=== PATIENT | female | born 1940 | race Caucasian/White ===

== ENCOUNTER 2017-12-29 15:08 | Inpatient (IN) | payer MEDICARE, OTHER ==
[2017-12-29 21:53] LABS: ADD MAN DIFF? NO
[2017-12-29 21:56] LABS: BASOPHILS % 0.4 % (0.0-2.0); EOSINOPHILS # 0.1 10^3/ul (0.0-0.5); EOSINOPHILS % 1.3 % (0.0-7.0); HEMATOCRIT 29.6 % (37.0-47.0); HEMOGLOBIN 9.5 g/dl (12.0-16.0); LYMPHOCYTES # 0.6 10^3/ul (0.8-2.9); LYMPHOCYTES % 11.7 % (15.0-51.0); MEAN CORPUSCULAR HEMOGLOBIN 29.4 pg (29.0-33.0); MEAN CORPUSCULAR HGB CONC 32.1 g/dl (32.0-37.0); MEAN CORPUSCULAR VOLUME 91.6 fl (82.0-101.0); MONOCYTE # 0.2 10^3/ul (0.3-0.9); MONOCYTES % 4.2 % (0.0-11.0); NEUTROPHIL # 4.5 10^3/ul (1.6-7.5); NEUTROPHILS % 81.5 % (39.0-77.0); PLATELET COUNT 315 10^3/UL (140-415); RED BLOOD COUNT 3.23 10^6/ul (4.20-5.40); RED CELL DISTRIBUTION WIDTH 15.8 % (11.5-14.5)
[2017-12-29 21:56] LABS: WHITE BLOOD COUNT 5.5 10^3/ul (4.8-10.8)
[2017-12-29 22:17] LABS: ALANINE AMINOTRANSFERASE 23 IU/L (13-69); ALBUMIN 2.8 g/dl (3.3-4.9); ALKALINE PHOSPHATASE 96 IU/L (42-121); ANION GAP 12 (8-16); ASPARTATE AMINO TRANSFERASE 25 IU/L (15-46); BLOOD UREA NITROGEN 25 mg/dl (7-20); CALCIUM 8.7 mg/dl (8.4-10.2); CARBON DIOXIDE 21 mmol/L (21-31); CHLORIDE 111 mmol/L (97-110); CREATININE 1.67 mg/dl (0.44-1.00); GLUCOSE 114 mg/dl (70-220); SODIUM 141 mmol/L (135-144); TOTAL PROTEIN 6.3 g/dl (6.1-8.1)
[2017-12-29 22:28] LABS: POTASSIUM 2.8 mmol/L (3.5-5.1)
[2017-12-29 22:29] LABS: B-TYPE NATRIURETIC PEPTIDE 1120 PG/ML (0-450); TROPONIN-I 0.015 ng/ml (0.00-0.12)
[2017-12-29] MEDS ORDERED: ONDANSETRON 4 MG INJ IV (23:00)
[2017-12-29] MEDS ORDERED: ACETAMINOPHEN 325 MG TAB PO (23:00)
[2017-12-29] MEDS: FUROSEMIDE 40 MG INJ IV (23:25)
[2017-12-29] MEDS: POTASSIUM CHLORIDE 100 ML IVPB (23:35)
[2017-12-29 23:52] LABS: MAGNESIUM 1.5 mg/dl (1.7-2.5)
[2017-12-30] MEDS: POTASSIUM CHLORIDE 100 ML IVPB (02:53)
[2017-12-30] MEDS ORDERED: PENDING SANTYL ORDER FOR WOUND CARE XX (03:00)
[2017-12-30] MEDS: MAGNESIUM SULFATE 2 GM/50 ML 50 ML IVPB (05:18)
[2017-12-30] MEDS: AMLODIPINE 10 MG TAB PO (08:29)
[2017-12-30] MEDS: ALLOPURINOL 100 MG TAB PO (08:29)
[2017-12-30 08:49] LABS: ADD MAN DIFF? NO
[2017-12-30 08:54] LABS: BASOPHILS % 0.2 % (0.0-2.0); EOSINOPHILS # 0.1 10^3/ul (0.0-0.5); EOSINOPHILS % 2.6 % (0.0-7.0); HEMATOCRIT 23.9 % (37.0-47.0); HEMOGLOBIN 7.9 g/dl (12.0-16.0); LYMPHOCYTES # 0.7 10^3/ul (0.8-2.9); LYMPHOCYTES % 16.7 % (15.0-51.0); MEAN CORPUSCULAR HEMOGLOBIN 29.8 pg (29.0-33.0); MEAN CORPUSCULAR HGB CONC 33.1 g/dl (32.0-37.0); MEAN CORPUSCULAR VOLUME 90.2 fl (82.0-101.0); MEAN PLATELET VOLUME 9.4 fl (7.4-10.4); MONOCYTE # 0.2 10^3/ul (0.3-0.9); MONOCYTES % 5.7 % (0.0-11.0); NEUTROPHIL # 3.1 10^3/ul (1.6-7.5); NEUTROPHILS % 73.6 % (39.0-77.0); PLATELET COUNT 279 10^3/UL (140-415); RED BLOOD COUNT 2.65 10^6/ul (4.20-5.40); RED CELL DISTRIBUTION WIDTH 15.9 % (11.5-14.5)
[2017-12-30 08:54] LABS: WHITE BLOOD COUNT 4.2 10^3/ul (4.8-10.8)
[2017-12-30 09:29] LABS: ANION GAP 10 (8-16); BLOOD UREA NITROGEN 26 mg/dl (7-20); CALCIUM 8.2 mg/dl (8.4-10.2); CARBON DIOXIDE 25 mmol/L (21-31); CHLORIDE 113 mmol/L (97-110); GLUCOSE 89 mg/dl (70-220); MAGNESIUM 1.9 mg/dl (1.7-2.5); PHOSPHORUS 3.2 mg/dl (2.5-4.9); POTASSIUM 3.1 mmol/L (3.5-5.1); SODIUM 145 mmol/L (135-144)
[2017-12-30 10:16] LABS: ADD UMIC YES; UR ASCORBIC ACID NEGATIVE (NEGATIVE); UR BILIRUBIN (Dip) NEGATIVE (NEGATIVE); UR BLOOD (Dip) 1+ mg/dL (NEGATIVE); UR CLARITY CLEAR (CLEAR); UR COLOR STRAW (YELLOW); UR GLUCOSE (Dip) NEGATIVE (NEGATIVE); UR KETONES (Dip) NEGATIVE (NEGATIVE); UR LEUKOCYTE ESTERASE (Dip) NEGATIVE Leu/ul (NEGATIVE); UR NITRITE (Dip) NEGATIVE (NEGATIVE); UR RBC 6 /HPF (0-5); UR SPECIFIC GRAVITY (Dip) 1.005 (1.003-1.030); UR TOTAL PROTEIN (Dip) 1+ mg/dl (NEGATIVE); UR UROBILINOGEN (Dip) NEGATIVE (NEGATIVE); UR WBC 1 /HPF (0-5)
[2017-12-30 11:13] LABS: CREATININE,URINE RANDOM 18.51 mg/dl (20-320)
[2017-12-30 11:13] LABS: SODIUM,URINE RANDOM 125 mmol/L (30-90)
[2017-12-30 12:54] LABS: CHOLESTEROL 140 mg/dl (100-200)
[2017-12-30 12:54] LABS: CHOL/HDL RATIO 4.6 RATIO; HDL CHOLESTEROL 30 mg/dl (33-92); LDL CHOLESTEROL,CALCULATED 85 mg/dl; TRIGLYCERIDES 127 mg/dl (0-149)
[2017-12-30 13:28] LABS: HEMOGLOBIN A1C 5.5 % (0-5.9)
[2017-12-30] MEDS: POTASSIUM CHLORIDE (SR) 20 MEQ TAB PO (13:55)
[2017-12-30] MEDS: FUROSEMIDE 20 MG INJ IV (17:22)
[2017-12-30 19:12] LABS: CREATININE,URINE RANDOM 69.01 mg/dl (20-320)
[2017-12-30 19:14] LABS: SODIUM,URINE RANDOM 61 mmol/L (30-90)
[2017-12-30 19:20] LABS: PROTEIN/CREAT RATIO 4.04 RATIO
[2017-12-30] MEDS: ALBUTEROL 0.083% (NEB) 2.5 MG/3 ML AMP HHN (20:00)
[2017-12-30] MEDS: LATANOPROST 0.005% 2.5 ML OPH BOTH EYES (21:29)
[2017-12-31] MEDS: ACETAMINOPHEN 325 MG TAB PO (06:14)
[2017-12-31] MEDS: FUROSEMIDE 20 MG INJ IV ×2 (06:14→17:19)
[2017-12-31] MEDS: ALBUTEROL 0.083% (NEB) 2.5 MG/3 ML AMP HHN ×4 (07:38→20:48)
[2017-12-31 07:48] LABS: ADD MAN DIFF? NO
[2017-12-31 07:54] LABS: WHITE BLOOD COUNT 4.9 10^3/ul (4.8-10.8)
[2017-12-31 07:54] LABS: BASOPHILS % 0.4 % (0.0-2.0); EOSINOPHILS # 0.2 10^3/ul (0.0-0.5); HEMATOCRIT 26.8 % (37.0-47.0); HEMOGLOBIN 8.6 g/dl (12.0-16.0); LYMPHOCYTES # 0.8 10^3/ul (0.8-2.9); LYMPHOCYTES % 16.8 % (15.0-51.0); MEAN CORPUSCULAR HEMOGLOBIN 29.3 pg (29.0-33.0); MEAN CORPUSCULAR HGB CONC 32.1 g/dl (32.0-37.0); MEAN CORPUSCULAR VOLUME 91.2 fl (82.0-101.0); MEAN PLATELET VOLUME 9.3 fl (7.4-10.4); MONOCYTE # 0.3 10^3/ul (0.3-0.9); MONOCYTES % 6.7 % (0.0-11.0); NEUTROPHIL # 3.5 10^3/ul (1.6-7.5); NEUTROPHILS % 71.7 % (39.0-77.0); PLATELET COUNT 297 10^3/UL (140-415); RED BLOOD COUNT 2.94 10^6/ul (4.20-5.40); RED CELL DISTRIBUTION WIDTH 15.8 % (11.5-14.5)
[2017-12-31 08:13] LABS: ANION GAP 11 (8-16); BLOOD UREA NITROGEN 25 mg/dl (7-20); CALCIUM 8.4 mg/dl (8.4-10.2); CARBON DIOXIDE 24 mmol/L (21-31); CHLORIDE 114 mmol/L (97-110); CREATININE 1.58 mg/dl (0.44-1.00); GLUCOSE 77 mg/dl (70-220); POTASSIUM 3.4 mmol/L (3.5-5.1); SODIUM 146 mmol/L (135-144)
[2017-12-31 08:14] LABS: MAGNESIUM 1.6 mg/dl (1.7-2.5)
[2017-12-31 08:14] LABS: PHOSPHORUS 3.3 mg/dl (2.5-4.9)
[2017-12-31 08:19] LABS: CREATINE KINASE 50 IU/L (23-200)
[2017-12-31] MEDS: AMLODIPINE 10 MG TAB PO (08:19)
[2017-12-31] MEDS: ALLOPURINOL 100 MG TAB PO (08:21)
[2017-12-31] MEDS: POTASSIUM CHLORIDE (SR) 20 MEQ TAB PO ×2 (11:10→15:52)
[2017-12-31] MEDS: MAGNESIUM SULFATE 2 GM/50 ML 50 ML IVPB (11:10)
[2017-12-31] MEDS: ASPIRIN (EC) 81 MG TAB PO (17:19)
[2017-12-31] MEDS: LATANOPROST 0.005% 2.5 ML OPH BOTH EYES (20:40)
[2017-12-31] MEDS: HEPARIN 5,000 UNIT/0.5 ML VIAL SC (20:49)
[2017-12-31] MEDS ORDERED: FLUTICASONE 0.05% 16 GM NAS SPRAY NASAL (21:00)
[2017-12-31] MEDS: TIMOLOL 0.5% 5 ML OPH BOTH EYES (22:00)
[2018-01-01] MEDS: FUROSEMIDE 20 MG INJ IV ×2 (05:54→18:20)
[2018-01-01 06:32] LABS: ADD MAN DIFF? NO
[2018-01-01 07:16] LABS: ANION GAP 15 (8-16); BLOOD UREA NITROGEN 28 mg/dl (7-20); CALCIUM 8.6 mg/dl (8.4-10.2); CARBON DIOXIDE 24 mmol/L (21-31); CHLORIDE 113 mmol/L (97-110); CREATININE 1.67 mg/dl (0.44-1.00); GLUCOSE 81 mg/dl (70-220); POTASSIUM 4.2 mmol/L (3.5-5.1); SODIUM 148 mmol/L (135-144)
[2018-01-01] MEDS: ALBUTEROL 0.083% (NEB) 2.5 MG/3 ML AMP HHN ×3 (07:29→19:35)
[2018-01-01 08:02] LABS: PHOSPHORUS 3.4 mg/dl (2.5-4.9)
[2018-01-01 08:02] LABS: MAGNESIUM 1.9 mg/dl (1.7-2.5)
[2018-01-01 08:09] LABS: WHITE BLOOD COUNT 5.7 10^3/ul (4.8-10.8)
[2018-01-01 08:09] LABS: BASOPHILS % 0.3 % (0.0-2.0); EOSINOPHILS # 0.1 10^3/ul (0.0-0.5); EOSINOPHILS % 2.4 % (0.0-7.0); HEMATOCRIT 25.5 % (37.0-47.0); HEMOGLOBIN 8.2 g/dl (12.0-16.0); LYMPHOCYTES # 0.9 10^3/ul (0.8-2.9); LYMPHOCYTES % 15.5 % (15.0-51.0); MEAN CORPUSCULAR HEMOGLOBIN 29.8 pg (29.0-33.0); MEAN CORPUSCULAR HGB CONC 32.2 g/dl (32.0-37.0); MEAN CORPUSCULAR VOLUME 92.7 fl (82.0-101.0); MEAN PLATELET VOLUME 9.6 fl (7.4-10.4); MONOCYTE # 0.3 10^3/ul (0.3-0.9); MONOCYTES % 4.9 % (0.0-11.0); NEUTROPHIL # 4.3 10^3/ul (1.6-7.5); NEUTROPHILS % 75.5 % (39.0-77.0); PLATELET COUNT 307 10^3/UL (140-415); RED BLOOD COUNT 2.75 10^6/ul (4.20-5.40); RED CELL DISTRIBUTION WIDTH 16.3 % (11.5-14.5)
[2018-01-01] MEDS: AMLODIPINE 10 MG TAB PO (09:32)
[2018-01-01] MEDS: ALLOPURINOL 100 MG TAB PO (09:32)
[2018-01-01] MEDS: ASPIRIN (EC) 81 MG TAB PO (09:32)
[2018-01-01] MEDS: TIMOLOL 0.5% 5 ML OPH BOTH EYES ×2 (09:33→20:22)
[2018-01-01] MEDS: HEPARIN 5,000 UNIT/0.5 ML VIAL SC ×2 (09:38→20:34)
[2018-01-01 15:40] LABS: PLATELET COUNT 320 10^3/UL (140-415)
[2018-01-01 15:58] LABS: INR 0.93; PARTIAL THROMBOPLASTIN TIME 29.5 Sec (25.0-35.0); PROTIME 12.5 Sec (11.9-14.9)
[2018-01-01 16:02] LABS: THROMBIN TIME 15.7 SEC (13.8-19.1)
[2018-01-01] MEDS: LATANOPROST 0.005% 2.5 ML OPH BOTH EYES (20:22)
[2018-01-02] MEDS: FUROSEMIDE 20 MG INJ IV ×2 (05:48→18:34)
[2018-01-02 07:18] LABS: ADD MAN DIFF? NO
[2018-01-02 07:21] LABS: WHITE BLOOD COUNT 5.8 10^3/ul (4.8-10.8)
[2018-01-02 07:21] LABS: BASOPHILS % 0.3 % (0.0-2.0); EOSINOPHILS # 0.2 10^3/ul (0.0-0.5); EOSINOPHILS % 2.6 % (0.0-7.0); HEMATOCRIT 25.8 % (37.0-47.0); HEMOGLOBIN 8.1 g/dl (12.0-16.0); LYMPHOCYTES # 1.1 10^3/ul (0.8-2.9); LYMPHOCYTES % 19.3 % (15.0-51.0); MEAN CORPUSCULAR HEMOGLOBIN 29.5 pg (29.0-33.0); MEAN CORPUSCULAR HGB CONC 31.4 g/dl (32.0-37.0); MEAN CORPUSCULAR VOLUME 93.8 fl (82.0-101.0); MEAN PLATELET VOLUME 9.8 fl (7.4-10.4); MONOCYTE # 0.4 10^3/ul (0.3-0.9); MONOCYTES % 6.2 % (0.0-11.0); NEUTROPHIL # 4.1 10^3/ul (1.6-7.5); NEUTROPHILS % 70.2 % (39.0-77.0); PLATELET COUNT 318 10^3/UL (140-415); RED BLOOD COUNT 2.75 10^6/ul (4.20-5.40); RED CELL DISTRIBUTION WIDTH 16.1 % (11.5-14.5)
[2018-01-02 07:36] LABS: ANION GAP 13 (8-16); BLOOD UREA NITROGEN 31 mg/dl (7-20); CALCIUM 8.6 mg/dl (8.4-10.2); CARBON DIOXIDE 25 mmol/L (21-31); CHLORIDE 112 mmol/L (97-110); CREATININE 1.54 mg/dl (0.44-1.00); GLUCOSE 80 mg/dl (70-220); POTASSIUM 4.1 mmol/L (3.5-5.1); SODIUM 146 mmol/L (135-144)
[2018-01-02 07:38] LABS: PHOSPHORUS 3.2 mg/dl (2.5-4.9)
[2018-01-02 07:38] LABS: MAGNESIUM 1.6 mg/dl (1.7-2.5)
[2018-01-02] MEDS: ALBUTEROL 0.083% (NEB) 2.5 MG/3 ML AMP HHN ×3 (07:43→19:12)
[2018-01-02] MEDS: TIMOLOL 0.5% 5 ML OPH BOTH EYES ×2 (09:21→20:29)
[2018-01-02] MEDS: ALLOPURINOL 100 MG TAB PO (09:22)
[2018-01-02] MEDS: ASPIRIN (EC) 81 MG TAB PO (09:22)
[2018-01-02] MEDS: AMLODIPINE 10 MG TAB PO (09:23)
[2018-01-02] MEDS: HEPARIN 5,000 UNIT/0.5 ML VIAL SC (09:34)
[2018-01-02] MEDS: MAGNESIUM SULFATE 2 GM/50 ML 50 ML IVPB (15:40)
[2018-01-02] MEDS: LATANOPROST 0.005% 2.5 ML OPH BOTH EYES (20:27)
[2018-01-03] MEDS: FUROSEMIDE 20 MG INJ IV ×2 (05:43→18:05)
[2018-01-03 06:03] LABS: WHITE BLOOD COUNT 4.1 10^3/ul (4.8-10.8)
[2018-01-03 06:03] LABS: ADD MAN DIFF? NO; BASOPHILS % 0.2 % (0.0-2.0); EOSINOPHILS # 0.2 10^3/ul (0.0-0.5); EOSINOPHILS % 3.9 % (0.0-7.0); HEMATOCRIT 25.6 % (37.0-47.0); LYMPHOCYTES # 0.8 10^3/ul (0.8-2.9); LYMPHOCYTES % 20.6 % (15.0-51.0); MEAN CORPUSCULAR HEMOGLOBIN 29.6 pg (29.0-33.0); MEAN CORPUSCULAR HGB CONC 31.3 g/dl (32.0-37.0); MEAN CORPUSCULAR VOLUME 94.8 fl (82.0-101.0); MEAN PLATELET VOLUME 9.4 fl (7.4-10.4); MONOCYTE # 0.2 10^3/ul (0.3-0.9); MONOCYTES % 5.2 % (0.0-11.0); NEUTROPHIL # 2.8 10^3/ul (1.6-7.5); NEUTROPHILS % 68.9 % (39.0-77.0); PLATELET COUNT 298 10^3/UL (140-415); RED CELL DISTRIBUTION WIDTH 15.9 % (11.5-14.5)
[2018-01-03 07:57] LABS: ANION GAP 10 (8-16); BLOOD UREA NITROGEN 29 mg/dl (7-20); CALCIUM 8.4 mg/dl (8.4-10.2); CARBON DIOXIDE 27 mmol/L (21-31); CHLORIDE 110 mmol/L (97-110); CREATININE 1.53 mg/dl (0.44-1.00); GLUCOSE 82 mg/dl (70-220); POTASSIUM 3.6 mmol/L (3.5-5.1); SODIUM 143 mmol/L (135-144)
[2018-01-03 08:26] LABS: PHOSPHORUS 3.1 mg/dl (2.5-4.9)
[2018-01-03] MEDS: TIMOLOL 0.5% 5 ML OPH BOTH EYES ×2 (08:48→20:17)
[2018-01-03] MEDS: ASPIRIN (EC) 81 MG TAB PO (08:49)
[2018-01-03] MEDS: ALLOPURINOL 100 MG TAB PO (08:49)
[2018-01-03] MEDS: AMLODIPINE 10 MG TAB PO (08:49)
[2018-01-03] MEDS: ALBUTEROL 0.083% (NEB) 2.5 MG/3 ML AMP HHN ×4 (09:45→20:37)
[2018-01-03] MEDS: LIDOCAINE 1% (MPF) 5 ML VIAL (16:38)
[2018-01-03 17:26] LABS: FLD PMN% 3.5 %; FLD RBC 1000 /uL; FLD WBC 457 /cmm
[2018-01-03 17:32] LABS: FLUID GLUCOSE 121 mg/dl; FLUID TYPE PLEURAL FLUID
[2018-01-03 17:33] LABS: FLUID LD 208 U/L; FLUID TOTAL PROTEIN < 2.0 g/dl; FLUID TYPE PLEURAL FLUID
[2018-01-03 17:48] LABS: FLD TYPE PLEURAL
[2018-01-03 17:48] LABS: FLD CLARITY SLIGHTLY CLOUDY; FLD COLOR ORANGE
[2018-01-03 17:49] LABS: FLD MN% 96.5 %
[2018-01-03] MEDS: LATANOPROST 0.005% 2.5 ML OPH BOTH EYES (20:17)
[2018-01-03] MEDS: ACETAMINOPHEN 325 MG TAB PO (20:21)
[2018-01-04] MEDS: FUROSEMIDE 20 MG INJ IV ×2 (05:41→17:53)
[2018-01-04] MEDS: ALBUTEROL 0.083% (NEB) 2.5 MG/3 ML AMP HHN ×2 (08:45→20:00)
[2018-01-04] MEDS: TIMOLOL 0.5% 5 ML OPH BOTH EYES ×2 (09:01→20:05)
[2018-01-04] MEDS: AMLODIPINE 10 MG TAB PO (09:02)
[2018-01-04] MEDS: ALLOPURINOL 100 MG TAB PO (09:02)
[2018-01-04] MEDS: ASPIRIN (EC) 81 MG TAB PO (09:02)
[2018-01-04 12:07] LABS: ANION GAP 13 (8-16); BLOOD UREA NITROGEN 31 mg/dl (7-20); CALCIUM 8.9 mg/dl (8.4-10.2); CARBON DIOXIDE 29 mmol/L (21-31); CHLORIDE 106 mmol/L (97-110); CREATININE 1.57 mg/dl (0.44-1.00); GLUCOSE 178 mg/dl (70-220); POTASSIUM 3.4 mmol/L (3.5-5.1); SODIUM 145 mmol/L (135-144)
[2018-01-04 13:17] LABS: AADO2 Arterial 39.1 mmHg (7.0-24.0); Allen Test ACCEPTAB; Arterial Base Excess 2.4 mmol/L (-3.0-3); Arterial Blood Gas Oxygen Sat 92.5 mmHG (95.0-100.0); Arterial COHb 0.3 % (0.0-3.0); Arterial HCO3 26.8 mmol/L (22.0-26.0); Arterial MetHb 0.2 % (0.0-1.5); Arterial Total Hemglobin 10.9 g/dl (12.0-18.0); Arterial pCO2 40.6 mmhg (35-45); MODE ROOM AIR; Site Left Radial
[2018-01-04] MEDS: LATANOPROST 0.005% 2.5 ML OPH BOTH EYES (20:05)
[2018-01-04] MEDS: HEPARIN 5,000 UNIT/0.5 ML VIAL SC (20:14)
[2018-01-04] MEDS: POTASSIUM CHLORIDE (SR) 20 MEQ TAB PO (20:25)
[2018-01-05] MEDS: FUROSEMIDE 20 MG INJ IV ×2 (06:23→18:14)
[2018-01-05] MEDS: TIMOLOL 0.5% 5 ML OPH BOTH EYES ×2 (08:13→21:15)
[2018-01-05] MEDS: ASPIRIN (EC) 81 MG TAB PO (08:13)
[2018-01-05] MEDS: ALLOPURINOL 100 MG TAB PO (08:13)
[2018-01-05] MEDS: AMLODIPINE 10 MG TAB PO (08:15)
[2018-01-05] MEDS: HEPARIN 5,000 UNIT/0.5 ML VIAL SC ×2 (08:16→21:18)
[2018-01-05] MEDS: ALBUTEROL 0.083% (NEB) 2.5 MG/3 ML AMP HHN ×3 (08:21→19:57)
[2018-01-05] MEDS: LATANOPROST 0.005% 2.5 ML OPH BOTH EYES (21:15)
[2018-01-06] MEDS: FUROSEMIDE 20 MG INJ IV ×2 (06:14→18:13)
[2018-01-06 08:17] LABS: ADD MAN DIFF? NO
[2018-01-06] MEDS: TIMOLOL 0.5% 5 ML OPH BOTH EYES ×2 (08:18→21:46)
[2018-01-06] MEDS: ASPIRIN (EC) 81 MG TAB PO (08:18)
[2018-01-06] MEDS: ALLOPURINOL 100 MG TAB PO (08:19)
[2018-01-06] MEDS: HEPARIN 5,000 UNIT/0.5 ML VIAL SC ×2 (08:19→21:00)
[2018-01-06] MEDS: AMLODIPINE 10 MG TAB PO (08:19)
[2018-01-06 08:26] LABS: WHITE BLOOD COUNT 5.8 10^3/ul (4.8-10.8)
[2018-01-06 08:26] LABS: BASOPHILS % 0.2 % (0.0-2.0); EOSINOPHILS # 0.2 10^3/ul (0.0-0.5); EOSINOPHILS % 2.8 % (0.0-7.0); HEMATOCRIT 26.2 % (37.0-47.0); LYMPHOCYTES # 1.1 10^3/ul (0.8-2.9); LYMPHOCYTES % 19.7 % (15.0-51.0); MEAN CORPUSCULAR HEMOGLOBIN 29.5 pg (29.0-33.0); MEAN CORPUSCULAR HGB CONC 30.5 g/dl (32.0-37.0); MEAN CORPUSCULAR VOLUME 96.7 fl (82.0-101.0); MEAN PLATELET VOLUME 9.7 fl (7.4-10.4); MONOCYTE # 0.4 10^3/ul (0.3-0.9); MONOCYTES % 6.4 % (0.0-11.0); NEUTROPHILS % 69.9 % (39.0-77.0); PLATELET COUNT 340 10^3/UL (140-415); RED BLOOD COUNT 2.71 10^6/ul (4.20-5.40); RED CELL DISTRIBUTION WIDTH 15.8 % (11.5-14.5)
[2018-01-06 08:48] LABS: B-TYPE NATRIURETIC PEPTIDE 1600 PG/ML (0-450)
[2018-01-06 08:49] LABS: ANION GAP 11 (8-16); BLOOD UREA NITROGEN 31 mg/dl (7-20); CALCIUM 8.6 mg/dl (8.4-10.2); CARBON DIOXIDE 31 mmol/L (21-31); CHLORIDE 107 mmol/L (97-110); CREATININE 1.54 mg/dl (0.44-1.00); GLUCOSE 82 mg/dl (70-220); POTASSIUM 3.9 mmol/L (3.5-5.1); SODIUM 145 mmol/L (135-144)
[2018-01-06] MEDS: ALBUTEROL 0.083% (NEB) 2.5 MG/3 ML AMP HHN ×3 (09:17→19:35)
[2018-01-06 09:25] LABS: PHOSPHORUS 3.2 mg/dl (2.5-4.9)
[2018-01-06 09:25] LABS: MAGNESIUM 1.6 mg/dl (1.7-2.5)
[2018-01-06] MEDS: LATANOPROST 0.005% 2.5 ML OPH BOTH EYES (21:46)
[2018-01-07] MEDS: FUROSEMIDE 20 MG INJ IV (06:15)
[2018-01-07 07:32] LABS: ALANINE AMINOTRANSFERASE 36 IU/L (13-69); ALBUMIN 2.4 g/dl (3.3-4.9); ALKALINE PHOSPHATASE 135 IU/L (42-121); ANION GAP 9 (8-16); ASPARTATE AMINO TRANSFERASE 43 IU/L (15-46); BLOOD UREA NITROGEN 34 mg/dl (7-20); CALCIUM 8.3 mg/dl (8.4-10.2); CARBON DIOXIDE 31 mmol/L (21-31); CHLORIDE 108 mmol/L (97-110); CREATININE 1.45 mg/dl (0.44-1.00); GLUCOSE 81 mg/dl (70-220); POTASSIUM 3.5 mmol/L (3.5-5.1); SODIUM 144 mmol/L (135-144); TOTAL PROTEIN 5.4 g/dl (6.1-8.1)
[2018-01-07] MEDS: ALBUTEROL 0.083% (NEB) 2.5 MG/3 ML AMP HHN ×3 (08:00→19:20)
[2018-01-07] MEDS: ALLOPURINOL 100 MG TAB PO (08:45)
[2018-01-07] MEDS: ASPIRIN (EC) 81 MG TAB PO (08:45)
[2018-01-07] MEDS: AMLODIPINE 10 MG TAB PO (08:46)
[2018-01-07] MEDS: TIMOLOL 0.5% 5 ML OPH BOTH EYES ×2 (08:46→20:42)
[2018-01-07] MEDS: HEPARIN 5,000 UNIT/0.5 ML VIAL SC ×2 (08:49→20:48)
[2018-01-07 11:58] LABS: IRON 14 ug/dl (35-150)
[2018-01-07 12:07] LABS: % IRON SATURATION 8 % SAT (22-52); TOTAL IRON BINDING CAPACITY 167 ug/dl (241-421)
[2018-01-07 14:47] LABS: COLLECTION PERIOD 24 hrs
[2018-01-07 15:41] LABS: VOLUME 2150 mls
[2018-01-07] MEDS: LATANOPROST 0.005% 2.5 ML OPH BOTH EYES (20:43)
[2018-01-07] MEDS: FUROSEMIDE 40 MG INJ IV (20:44)
[2018-01-07] MEDS: EPOETIN 10000 UNITS/1 ML INJ (ESRD) SC (20:47)
[2018-01-08 06:18] LABS: ADD MAN DIFF? NO
[2018-01-08 06:22] LABS: BASOPHILS % 0.2 % (0.0-2.0); EOSINOPHILS # 0.2 10^3/ul (0.0-0.5); EOSINOPHILS % 3.4 % (0.0-7.0); HEMATOCRIT 24.9 % (37.0-47.0); HEMOGLOBIN 7.8 g/dl (12.0-16.0); LYMPHOCYTES # 0.9 10^3/ul (0.8-2.9); LYMPHOCYTES % 16.1 % (15.0-51.0); MEAN CORPUSCULAR HEMOGLOBIN 29.7 pg (29.0-33.0); MEAN CORPUSCULAR HGB CONC 31.3 g/dl (32.0-37.0); MEAN CORPUSCULAR VOLUME 94.7 fl (82.0-101.0); MEAN PLATELET VOLUME 9.5 fl (7.4-10.4); MONOCYTE # 0.3 10^3/ul (0.3-0.9); MONOCYTES % 6.4 % (0.0-11.0); NEUTROPHIL # 3.9 10^3/ul (1.6-7.5); PLATELET COUNT 298 10^3/UL (140-415); RED BLOOD COUNT 2.63 10^6/ul (4.20-5.40); RED CELL DISTRIBUTION WIDTH 15.5 % (11.5-14.5)
[2018-01-08 06:22] LABS: WHITE BLOOD COUNT 5.3 10^3/ul (4.8-10.8)
[2018-01-08] MEDS: FUROSEMIDE 40 MG INJ IV ×2 (06:31→17:36)
[2018-01-08 07:06] LABS: ALANINE AMINOTRANSFERASE 43 IU/L (13-69); ALBUMIN 2.4 g/dl (3.3-4.9); ALKALINE PHOSPHATASE 182 IU/L (42-121); ANION GAP 9 (8-16); ASPARTATE AMINO TRANSFERASE 63 IU/L (15-46); BLOOD UREA NITROGEN 33 mg/dl (7-20); CALCIUM 8.6 mg/dl (8.4-10.2); CARBON DIOXIDE 32 mmol/L (21-31); CHLORIDE 106 mmol/L (97-110); GLUCOSE 82 mg/dl (70-220); POTASSIUM 3.4 mmol/L (3.5-5.1); SODIUM 144 mmol/L (135-144); TOTAL PROTEIN 5.4 g/dl (6.1-8.1)
[2018-01-08] MEDS: ALBUTEROL 0.083% (NEB) 2.5 MG/3 ML AMP HHN ×4 (08:00→21:25)
[2018-01-08] MEDS: ASPIRIN (EC) 81 MG TAB PO (09:21)
[2018-01-08] MEDS: ALLOPURINOL 100 MG TAB PO (09:21)
[2018-01-08] MEDS: TIMOLOL 0.5% 5 ML OPH BOTH EYES ×2 (09:21→20:40)
[2018-01-08] MEDS: AMLODIPINE 10 MG TAB PO (09:22)
[2018-01-08] MEDS: HEPARIN 5,000 UNIT/0.5 ML VIAL SC ×2 (09:58→20:40)
[2018-01-08 15:19] LABS: URIC ACID 4.8 mg/dl (3.1-7.9)
[2018-01-08] MEDS: POTASSIUM CHLORIDE (SR) 20 MEQ TAB PO (17:35)
[2018-01-08] MEDS: SOD FERRIC GLUC COMPLX 125 MG in SOD CHLORIDE 0.9% 100 ML IVPB (17:37)
[2018-01-08] MEDS: LATANOPROST 0.005% 2.5 ML OPH BOTH EYES (20:40)
[2018-01-09] MEDS: FUROSEMIDE 40 MG INJ IV ×2 (06:10→17:27)
[2018-01-09] MEDS: TIMOLOL 0.5% 5 ML OPH BOTH EYES ×2 (08:25→21:00)
[2018-01-09] MEDS: HEPARIN 5,000 UNIT/0.5 ML VIAL SC ×2 (08:27→21:00)
[2018-01-09] MEDS: ASPIRIN (EC) 81 MG TAB PO (08:27)
[2018-01-09] MEDS: ALLOPURINOL 100 MG TAB PO (08:27)
[2018-01-09] MEDS: AMLODIPINE 10 MG TAB PO (08:28)
[2018-01-09] MEDS: ALBUTEROL 0.083% (NEB) 2.5 MG/3 ML AMP HHN ×3 (08:30→20:26)
[2018-01-09] MEDS: SOD FERRIC GLUC COMPLX 125 MG in SOD CHLORIDE 0.9% 100 ML IVPB (16:09)
[2018-01-09] MEDS: LATANOPROST 0.005% 2.5 ML OPH BOTH EYES (21:13)
[2018-01-10] MEDS: FUROSEMIDE 40 MG INJ IV (06:32)
[2018-01-10] MEDS: ALBUTEROL 0.083% (NEB) 2.5 MG/3 ML AMP HHN ×3 (07:18→20:00)
[2018-01-10 08:14] LABS: ADD MAN DIFF? NO
[2018-01-10 08:32] LABS: BASOPHILS % 0.2 % (0.0-2.0); EOSINOPHILS # 0.1 10^3/ul (0.0-0.5); EOSINOPHILS % 1.7 % (0.0-7.0); HEMATOCRIT 24.7 % (37.0-47.0); HEMOGLOBIN 7.8 g/dl (12.0-16.0); LYMPHOCYTES # 0.9 10^3/ul (0.8-2.9); LYMPHOCYTES % 15.9 % (15.0-51.0); MEAN CORPUSCULAR HEMOGLOBIN 29.4 pg (29.0-33.0); MEAN CORPUSCULAR HGB CONC 31.6 g/dl (32.0-37.0); MEAN CORPUSCULAR VOLUME 93.2 fl (82.0-101.0); MEAN PLATELET VOLUME 9.8 fl (7.4-10.4); MONOCYTE # 0.3 10^3/ul (0.3-0.9); MONOCYTES % 5.1 % (0.0-11.0); NEUTROPHIL # 4.5 10^3/ul (1.6-7.5); NEUTROPHILS % 76.1 % (39.0-77.0); PLATELET COUNT 310 10^3/UL (140-415); RED BLOOD COUNT 2.65 10^6/ul (4.20-5.40); RED CELL DISTRIBUTION WIDTH 15.4 % (11.5-14.5)
[2018-01-10 08:32] LABS: WHITE BLOOD COUNT 5.9 10^3/ul (4.8-10.8)
[2018-01-10 08:51] LABS: ALANINE AMINOTRANSFERASE 53 IU/L (13-69); ALBUMIN 2.4 g/dl (3.3-4.9); ALBUMIN/GLOBULIN RATIO 0.77; ALKALINE PHOSPHATASE 311 IU/L (42-121); ANION GAP 10 (8-16); ASPARTATE AMINO TRANSFERASE 80 IU/L (15-46); BLOOD UREA NITROGEN 32 mg/dl (7-20); CALCIUM 8.4 mg/dl (8.4-10.2); CARBON DIOXIDE 34 mmol/L (21-31); CHLORIDE 102 mmol/L (97-110); CREATININE 1.59 mg/dl (0.44-1.00); GLUCOSE 78 mg/dl (70-220); POTASSIUM 3.2 mmol/L (3.5-5.1); SODIUM 143 mmol/L (135-144); TOTAL PROTEIN 5.5 g/dl (6.1-8.1)
[2018-01-10] MEDS: TIMOLOL 0.5% 5 ML OPH BOTH EYES ×2 (09:25→22:10)
[2018-01-10] MEDS: AMLODIPINE 10 MG TAB PO (09:26)
[2018-01-10] MEDS: ALLOPURINOL 100 MG TAB PO (09:27)
[2018-01-10] MEDS: ASPIRIN (EC) 81 MG TAB PO (09:27)
[2018-01-10] MEDS: HEPARIN 5,000 UNIT/0.5 ML VIAL SC ×2 (09:29→22:13)
[2018-01-10] MEDS: POTASSIUM CHLORIDE (SR) 20 MEQ TAB PO (12:39)
[2018-01-10] MEDS: SOD FERRIC GLUC COMPLX 125 MG in SOD CHLORIDE 0.9% 100 ML IVPB (16:58)
[2018-01-10] MEDS: EPOETIN 10000 UNITS/1 ML INJ (ESRD) SC (17:00)
[2018-01-10] MEDS: LATANOPROST 0.005% 2.5 ML OPH BOTH EYES (22:10)
[2018-01-11] MEDS: ALBUTEROL 0.083% (NEB) 2.5 MG/3 ML AMP HHN ×3 (08:00→19:32)
[2018-01-11 08:09] LABS: ADD MAN DIFF? NO
[2018-01-11 08:14] LABS: BASOPHILS % 0.2 % (0.0-2.0); EOSINOPHILS # 0.2 10^3/ul (0.0-0.5); EOSINOPHILS % 2.7 % (0.0-7.0); HEMATOCRIT 28.8 % (37.0-47.0); LYMPHOCYTES # 0.9 10^3/ul (0.8-2.9); LYMPHOCYTES % 13.9 % (15.0-51.0); MEAN CORPUSCULAR HEMOGLOBIN 29.5 pg (29.0-33.0); MEAN CORPUSCULAR HGB CONC 31.3 g/dl (32.0-37.0); MEAN CORPUSCULAR VOLUME 94.4 fl (82.0-101.0); MEAN PLATELET VOLUME 9.6 fl (7.4-10.4); MONOCYTE # 0.3 10^3/ul (0.3-0.9); MONOCYTES % 3.8 % (0.0-11.0); NEUTROPHIL # 5.2 10^3/ul (1.6-7.5); NEUTROPHILS % 78.2 % (39.0-77.0); NUCLEATED RED BLOOD CELLS% 0.3 /100WBC (0.0-0.0); PLATELET COUNT 365 10^3/UL (140-415); RED BLOOD COUNT 3.05 10^6/ul (4.20-5.40); RED CELL DISTRIBUTION WIDTH 15.1 % (11.5-14.5)
[2018-01-11 08:14] LABS: WHITE BLOOD COUNT 6.6 10^3/ul (4.8-10.8)
[2018-01-11 08:30] LABS: MAGNESIUM 1.5 mg/dl (1.7-2.5)
[2018-01-11 08:30] LABS: PHOSPHORUS 3.4 mg/dl (2.5-4.9)
[2018-01-11 08:33] LABS: ANION GAP 13 (8-16); BLOOD UREA NITROGEN 32 mg/dl (7-20); CALCIUM 8.7 mg/dl (8.4-10.2); CARBON DIOXIDE 32 mmol/L (21-31); CHLORIDE 101 mmol/L (97-110); CREATININE 1.77 mg/dl (0.44-1.00); GLUCOSE 81 mg/dl (70-220); POTASSIUM 3.6 mmol/L (3.5-5.1); SODIUM 142 mmol/L (135-144)
[2018-01-11] MEDS: AMLODIPINE 10 MG TAB PO (08:39)
[2018-01-11] MEDS: ASPIRIN (EC) 81 MG TAB PO (08:39)
[2018-01-11] MEDS: FUROSEMIDE 40 MG INJ IV (08:39)
[2018-01-11] MEDS: ALLOPURINOL 100 MG TAB PO (08:40)
[2018-01-11] MEDS: TIMOLOL 0.5% 5 ML OPH BOTH EYES ×2 (08:40→23:04)
[2018-01-11] MEDS: HEPARIN 5,000 UNIT/0.5 ML VIAL SC ×2 (08:42→23:04)
[2018-01-11] MEDS ORDERED: SALINE 0.65% 45 ML NAS SPRAY NASAL (15:00)
[2018-01-11] MEDS: MAGNESIUM SULFATE 2 GM/50 ML 50 ML IVPB (15:13)
[2018-01-11] MEDS: SOD FERRIC GLUC COMPLX 125 MG in SOD CHLORIDE 0.9% 100 ML IVPB (17:01)
[2018-01-11] MEDS: LATANOPROST 0.005% 2.5 ML OPH BOTH EYES (23:04)
[2018-01-12] MEDS: ALBUTEROL 0.083% (NEB) 2.5 MG/3 ML AMP HHN ×3 (08:00→19:32)
[2018-01-12] MEDS: TIMOLOL 0.5% 5 ML OPH BOTH EYES ×2 (08:39→21:00)
[2018-01-12] MEDS: ASPIRIN (EC) 81 MG TAB PO (08:40)
[2018-01-12] MEDS: ALLOPURINOL 100 MG TAB PO (08:40)
[2018-01-12] MEDS: FUROSEMIDE 40 MG INJ IV (08:40)
[2018-01-12] MEDS: AMLODIPINE 10 MG TAB PO (08:40)
[2018-01-12] MEDS: HEPARIN 5,000 UNIT/0.5 ML VIAL SC ×2 (08:43→21:00)
[2018-01-12 08:56] LABS: ADD MAN DIFF? NO
[2018-01-12 09:05] LABS: WHITE BLOOD COUNT 6.9 10^3/ul (4.8-10.8)
[2018-01-12 09:05] LABS: BASOPHILS % 0.1 % (0.0-2.0); EOSINOPHILS # 0.1 10^3/ul (0.0-0.5); EOSINOPHILS % 1.6 % (0.0-7.0); HEMATOCRIT 26.8 % (37.0-47.0); HEMOGLOBIN 8.5 g/dl (12.0-16.0); LYMPHOCYTES # 0.8 10^3/ul (0.8-2.9); MEAN CORPUSCULAR HEMOGLOBIN 29.8 pg (29.0-33.0); MEAN CORPUSCULAR HGB CONC 31.7 g/dl (32.0-37.0); MEAN PLATELET VOLUME 9.8 fl (7.4-10.4); MONOCYTE # 0.4 10^3/ul (0.3-0.9); MONOCYTES % 5.1 % (0.0-11.0); NEUTROPHIL # 5.5 10^3/ul (1.6-7.5); NEUTROPHILS % 79.9 % (39.0-77.0); NUCLEATED RED BLOOD CELLS% 0.3 /100WBC (0.0-0.0); PLATELET COUNT 364 10^3/UL (140-415); RED BLOOD COUNT 2.85 10^6/ul (4.20-5.40); RED CELL DISTRIBUTION WIDTH 15.3 % (11.5-14.5)
[2018-01-12 09:27] LABS: PHOSPHORUS 3.6 mg/dl (2.5-4.9)
[2018-01-12 09:30] LABS: ANION GAP 13 (8-16); BLOOD UREA NITROGEN 31 mg/dl (7-20); CALCIUM 8.5 mg/dl (8.4-10.2); CARBON DIOXIDE 30 mmol/L (21-31); CHLORIDE 102 mmol/L (97-110); CREATININE 1.77 mg/dl (0.44-1.00); GLUCOSE 82 mg/dl (70-220); POTASSIUM 3.5 mmol/L (3.5-5.1); SODIUM 141 mmol/L (135-144)
[2018-01-12] MEDS: POTASSIUM CHLORIDE (SR) 8 MEQ CAP PO (16:09)
[2018-01-12] MEDS: SOD FERRIC GLUC COMPLX 125 MG in SOD CHLORIDE 0.9% 100 ML IVPB (17:39)
[2018-01-12] MEDS: EPOETIN 10000 UNITS/1 ML INJ (ESRD) SC (17:42)
[2018-01-12 17:45] LABS: AADO2 Arterial 58.2 mmHg (7.0-24.0); Arterial Base Excess 5.2 mmol/L (-3.0-3); Arterial Blood Gas Oxygen Sat 82.3 mmHG (95.0-100.0); Arterial COHb 0.1 % (0.0-3.0); Arterial Fraction of Oxyhgb 82.1 % (93.0-99.0); Arterial HCO3 28.9 mmol/L (22.0-26.0); Arterial MetHb 0.2 % (0.0-1.5); Arterial Total Hemglobin 10.3 g/dl (12.0-18.0); Arterial pCO2 39.1 mmhg (35-45); Site LB
[2018-01-12 20:19] LABS: OCCULT BLOOD STOOL NEGATIVE (NEGATIVE)
[2018-01-12] MEDS: LATANOPROST 0.005% 2.5 ML OPH BOTH EYES (21:24)
[2018-01-13] MEDS: ALBUTEROL 0.083% (NEB) 2.5 MG/3 ML AMP HHN ×2 (07:54→15:01)
[2018-01-13] MEDS: TIMOLOL 0.5% 5 ML OPH BOTH EYES (08:54)
[2018-01-13] MEDS: FUROSEMIDE 40 MG INJ IV (08:55)
[2018-01-13] MEDS: ALLOPURINOL 100 MG TAB PO (08:56)
[2018-01-13] MEDS: AMLODIPINE 10 MG TAB PO (08:56)
[2018-01-13] MEDS: ASPIRIN (EC) 81 MG TAB PO (08:57)
[2018-01-13] MEDS: HEPARIN 5,000 UNIT/0.5 ML VIAL SC (08:57)
[2018-01-13 09:44] LABS: ANION GAP 12 (8-16); BLOOD UREA NITROGEN 32 mg/dl (7-20); CALCIUM 8.3 mg/dl (8.4-10.2); CARBON DIOXIDE 32 mmol/L (21-31); CHLORIDE 103 mmol/L (97-110); CREATININE 1.96 mg/dl (0.44-1.00); GLUCOSE 80 mg/dl (70-220); POTASSIUM 3.5 mmol/L (3.5-5.1); SODIUM 143 mmol/L (135-144)
[2018-01-13 09:48] LABS: MAGNESIUM 1.9 mg/dl (1.7-2.5)
[2018-01-13 09:48] LABS: PHOSPHORUS 3.5 mg/dl (2.5-4.9)
== END 2018-01-13 18:30 | disposition home health service (06) | DRG 291 ==
LOC: MS4 22:52 → E/R 15:08 → MS4 01-08 16:58
PROC: 0W993ZZ Drainage of Right Pleural Cavity, Percutaneous Approach (ICD-10-PCS; principal; 2018-01-03)
DX: I13.0 Hypertensive heart and chronic kidney disease with heart failure and stage 1 through stage 4 chronic kidney disease, or unspecified chronic kidney disease (principal); I50.33 Acute on chronic diastolic (congestive) heart failure; J96.01 Acute respiratory failure with hypoxia; N17.9 Acute kidney failure, unspecified; J90 Pleural effusion, not elsewhere classified; I27.20 Pulmonary hypertension, unspecified; E88.09 Other disorders of plasma-protein metabolism, not elsewhere classified; N13.30 Unspecified hydronephrosis; N05.2 Unspecified nephritic syndrome with diffuse membranous glomerulonephritis; L97.929 Non-pressure chronic ulcer of unspecified part of left lower leg with unspecified severity; L97.919 Non-pressure chronic ulcer of unspecified part of right lower leg with unspecified severity; N18.9 Chronic kidney disease, unspecified; E87.6 Hypokalemia; Z87.891 Personal history of nicotine dependence; I73.9 Peripheral vascular disease, unspecified; I07.1 Rheumatic tricuspid insufficiency; R53.81 Other malaise; N28.1 Cyst of kidney, acquired; D50.9 Iron deficiency anemia, unspecified
CPT/HCPCS: 32555; 36600; 71045; 74176; 76775; 80048; 80053; 80061; 81001; 81003; 82270; 82540; 82550; 82570; 82728; 82803; 82945; 83036; 83540; 83615; 83735; 83880; 84100; 84155; 84156; 84157; 84300; 84484; 84560; 85025; 85049; 85610; 85670; 85730; 87070; 87081; 87102; 87116; 88104; 88305; 89051; 89190; 93005; 93306; 93971; 94640; 94664; 96374; 96375; 97110; 97116; 97163; 97530; 99285-25; J1940